=== PATIENT | male | born 1955 | race Caucasian/White ===

== ENCOUNTER 2019-03-21 00:28 | Observation (INO) ==
[2019-03-21] MEDS ORDERED: 0.9 % Sodium Chloride 1,000 ML IVC ONE (00:31)
[2019-03-21] MEDS ORDERED: Isovue-370 500 ML BOTTLE IVP ONE (00:39)
--- NOTE | 2019-03-21 00:40 | Emergency Department Note ---
Disposition Clinical Impression: Vertigo, Near syncope, Aneurysm of infrarenal abdominal aorta Abdominal pain Qualifiers: Abdominal location: generalized Qualified Code(s): R10.84 - Generalized abdominal pain Nausea and vomiting Qualifiers: Vomiting type: unspecified Vomiting Intractability: unspecified Qualified Code(s): R11.2 - Nausea with vomiting, unspecified Diarrhea Qualifiers: Diarrhea type: unspecified type Qualified Code(s): R19.7 - Diarrhea, unspecified Pneumonia Qualifiers: Pneumonia type: due to unspecified organism Laterality: unspecified laterality Lung location: unspecified part of lung Qualified Code(s): J18.9 - Pneumonia, unspecified organism Disposition: Admitted As Inpatient Referrals: NONE,PCP [Primary Care Provider] - Shawn Jenkins DO [Partnered Physician] - [facility] [Outside] Forms: ED Satisfaction Letter, Work/School Release Time of Disposition: 04:36 General Adult HPI - General Chief complaint: ED General Medical Stated complaint: heat exhaustion Time Seen by Provider: 03/21/19 00:29 Source: patient, EMS Mode of arrival: EMS Limitations: no limitations Nursing Notes Reviewed: Yes Vital Signs Reviewed: Yes - History of Present Illness HPI Narrative: Patient is a 63-year-old male with a past medical history including hypertension, coronary artery disease status post CABG, presenting with a chief complaint of lightheadedness and near syncope. The patient worked outside all day long in the heat. He states he only drank some soda pop and flavored water. He states he urinated minimally today and it was dark. He went to bed this evening and around 10:30, he states he woke up. He states when he got out of bed, he felt lightheaded like he was going to pass out. He is ambulating towards the freezer when he fell down. He states he almost passed out. He does not know if he did lose consciousness or not. states he heard him fall and land on the ground. He does not know if he hit his head. He does not have any chest pain or shortness of breath. He does also complain of generalized abdominal pain. He complains of nausea and has had several episodes of nonbilious nonbloody emesis. He states he has had also diarrhea without melena or blood the last 2 days. He feels generally weak since waking up at 10:30. The patient denies any extremity pain, neck pain, back pain. EMS gave him 1 L of IV fluid bolus in route. Pain Scale: 0 - Related Data Home Medications Medication Instructions Recorded Confirmed metFORMIN 03/21/19 03/21/19 Previous Rx's Medication Instructions Recorded Aspirin Enteric Coated [Aspirin EC] 81 mg PO DAILY #30 tablet. 04/17/15 Allergies Allergy/AdvReac Type Severity Reaction Status Date / Time No Known Allergies Allergy Verified 03/21/19 00:31 All systems ED: reviewed and negative except as stated. Review of Systems: As Per HPI Constitutional: Denies: fever, chills ENT ED: Denies: congestion Cardiovascular: Reports: syncope. Denies: chest pain, palpitations Respiratory: Denies: cough, dyspnea Gastrointestinal: Reports: abdominal pain, nausea, vomiting, diarrhea. Denies: hematemesis, melena, hematochezia Musculoskeletal: Denies: back pain, neck pain Neurological: Denies: headache, weakness Past Medical History - Past Medical History Attestation: Yes The following information was validated with the patient. Source: patient Medical history: Reports: arthritis, coronary artery disease, GERD, hyperlipidemia, hypertension, other Surgical history: Reports: appendectomy, coronary bypass (CABG) (3-vessel, 2007), orthopedic, other (Right hip surgery) Psychiatric history: Reports: no psych history - Social History Smoking Status: Former smoker Smokeless Tobacco Status: No Alcohol use: Reports: none Drug use: Reports: none Physical Exam - General Limitations: no limitations General appearance: alert, in no apparent distress - Head Head exam: atraumatic, normocephalic - Eye Eye exam: Present: PERRL, EOMI, other (right lateral subconjunctival hemorrhage). Absent: nystagmus - ENT ENT exam: mucous membranes dry - Neck Neck exam: Present: trachea midline - Chest Chest inspection: Present: normal inspection, symmetric chest wall rise - Respiratory Respiratory exam: Present: normal lung sounds bilaterally. Absent: respiratory distress, wheezes - Cardiovascular Cardiovascular exam: Present: regular rate, normal rhythm - Abdominal Exam Abdominal exam: Present: soft, other (generalized abdominal tenderness without rebound or guarding). Absent: distention - Extremities Exam Extremities exam: Present: normal capillary refill. Absent: pedal edema, calf tenderness - Neurological Exam Neurological exam: Present: alert, oriented X3, CN II-XII intact. Absent: motor sensory deficit - Expanded Neurological Exam Speech: Present: fluid speech Cerebellar function: finger to nose: Normal Motor strength - LUE: 5/5 Motor strength - RUE: 5/5 Motor strength - LLE: 5/5 Motor strength - RLE: 5/5 Upper motor neuron exam: jj neglect: Absent bilaterally, pronator drift: Absent bilaterally Sensory exam upper extremity: light touch: Normal Sensory exam lower extremity: light touch: Normal - Psychiatric Psychiatric exam: Present: normal affect, normal mood - Skin Skin exam: Present: warm, dry. Absent: diaphoresis, pallor Course Vital Signs Temperature 97.5 F L 03/21/19 00:31 Pulse Rate 63 03/21/19 00:31 Respiratory Rate 18 03/21/19 00:31 Blood Pressure 125/79 03/21/19 00:31 O2 Sat by Pulse Oximetry 95 03/21/19 00:31 Temperature 97.5 F L 03/21/19 00:31 Pulse Rate 80 03/21/19 03:24 Respiratory Rate 19 03/21/19 03:24 Blood Pressure 129/77 03/21/19 03:24 O2 Sat by Pulse Oximetry 97 03/21/19 03:24 Oxygen Delivery Oxygen Delivery Room Air Medical Decision Making - MDM Narrative Medical decision making narrative: Patient is presenting with a near syncope versus syncope event. Possible loss of consciousness and may have hit his head. He has been out in the heat and has possible heat exhaustion. He does appear dry. He complains of abdominal pain, nausea and vomiting since 10:30 when he woke up. He denies any chest pain or shortness of breath. He received 1 L of IV fluid bolus by EMS. We will give him a second liter here. Nonfocal neurologic examination with NIHSS 0. We will obtain CT head, cervical spine without contrast as he may have hit his head. We will obtain CT abdomen and pelvis to evaluate his abdominal pain and nausea and vomiting as he had generalized abdominal tenderness to palpation. Check CBC, BMP, hepatic panel, lipase, troponin, CK, EKG, chest x-ray, urinalysis. 02:20 Labs reviewed. CK normal. Do not suspect rhabdomyolysis or significant dehydration. He received 2 L of IV fluids. Troponin less than 0.03. EKG without acute ischemic changes. The patient sat up in bed and then stated that the floor seem to be moving. He had an episode of vomiting. Zofran given. Will try meclizine for vertigo component. CT head and cervical spine were negative. CT abdomen and pelvis is pending. 02:25 CT abdomen and pelvis shows no acute intra-abdominal or intrapelvic abnormality. 4 cm infrarenal abdominal aortic aneurysm that is increased in size compared to 2016. One year follow-up is recommended. We will given vascular surgery follow-up as well. 03:00 Patient is trying to provide urine at this time and still feels dizzy and nauseous every time he stand or sits up. Laying on his right side helps with his symptoms. Will try reglan and benadryl and reassess. 03:45 Urinalysis negative. Patient is resting at this time. Will have him ambulate. 04:00 Patient stood up. States the room is spinning to the left. He was unable to ambulate secondary to the dizziness. He states nausea is improved. Will admit. Scopolamine patch and ativan will be given. Will add on ethanol level and urine drug screen. CXR did show atelectasis versus pneumonia and the patient has been vomiting. Will cover him for aspiration pneumonia with clindamycin plus azithromycin and rocephin. 04:[address] Hitchcock, hospitalist who accepts admission. Maintenance fluids started. - Medical Records Medical records reviewed: Yes I reviewed the patient's medical records. - Lab Data Lab results reviewed: Yes I reviewed the patient's lab results. Result diagrams: 03/21/19 00:46 03/21/19 00:46 Lab Results 03/21/19 03/21/19 03/21/19 Range/Units 00:46 00:46 03:16 WBC 13.9 H (4.3-11.1) K/mcL RBC 4.98 (4.19-5.50) M/mcL Hgb 13.5 (12.9-16.9) g/dL Hct 41.4 (37.5-50.1) % MCV 83.1 (83.0-100.0) fL MCH 27.1 L (28.0-33.3) pg MCHC 32.6 (31.6-35.5) g/dL RDW 14.2 (11.5-14.5) % Plt Count 164 (140-400) K/mcL MPV 10.9 (9.4-12.4) fL Immature Gran % 1.8 (0-4) % Seg Neutrophils % 75.4 % Lymphocytes % 13.6 % Monocytes % 7.4 % Eosinophils % 0.9 % Basophils % 0.9 % Neutrophils # 10.5 H (1.6-8.9) K/mcL Lymphocytes # 1.9 (0.6-4.6) K/mcL Monocytes # 1.0 (0.0-1.3) K/mcL Eosinophils # 0.1 (0.0-0.6) K/mcL Basophils # 0.1 (0.0-0.2) K/mcL Sodium 139 (136-145) mEq/L Potassium 3.8 (3.5-5.1) mEq/L Chloride 111 H (98-107) mEq/L Carbon Dioxide 22 L (23-29) mEq/L BUN 20 (8-23) mg/dL Creatinine 0.89 (0.70-1.30) mg/dL Est GFR ( Amer) > 60 (> 60) Est GFR (Non-Af Amer) > 60 (> 60) BUN/Creatinine Ratio 22 (6-26) Glucose 167 H (70-105) mg/dL Calculated Osmolality 294 (280-300) Calcium 7.4 L (8.6-10.3) mg/dL Phosphorus 2.5 L (2.7-4.5) mg/dL Magnesium 1.5 L (1.6-2.6) mg/dL Total Bilirubin 0.4 (0.3-1.0) mg/dL Direct Bilirubin 0.1 (0.0-0.2) mg/dL Indirect Bilirubin 0.3 (0.0-1.2) mg/dL AST 17 (13-39) Units/L ALT 23 (7-52) Units/L Alkaline Phosphatase 74 (34-104) Units/L Creatine Kinase 72 (30-223) Units/L Troponin I < 0.03 (< 0.04) ng/mL Serum Total Protein 5.0 L (6.4-8.9) g/dL Albumin 3.3 L (3.5-5.7) g/dL Globulin 1.7 L (2.4-3.5) g/dL Albumin/Globulin Ratio 1.9 (1.1-2.2) Lipase 18 (11-82) Units/L Urine Color Yellow (Yellow) Urine Clarity Clear (Clear) Urine pH 5.5 (5.0-8.0) pH Units Ur Specific [place] > 1.030 H (1.010-1.025) Urine Protein Trace (Neg-Trace) mg/dL Urine Glucose (UA) Normal (Normal) mg/dL Urine Ketones Negative (Negative) mg/dL Urine Blood Negative (Negative) Urine Nitrite Negative (Negative) Urine Bilirubin Negative (Negative) Urine Urobilinogen Normal (Normal) mg/dL Ur Leukocyte Esterase Negative (Negative) Ur Culture Indicated? NO (NO) Ur Drug Screen Interp Ethyl Alcohol < 10 (Less than 10) mg/dL 03/21/19 Range/Units 03:16 WBC (4.3-11.1) K/mcL RBC (4.19-5.50) M/mcL Hgb (12.9-16.9) g/dL Hct (37.5-50.1) % MCV (83.0-100.0) fL MCH (28.0-33.3) pg MCHC (31.6-35.5) g/dL RDW (11.5-14.5) % Plt Count (140-400) K/mcL MPV (9.4-12.4) fL Immature Gran % (0-4) % Seg Neutrophils % % Lymphocytes % % Monocytes % % Eosinophils % % Basophils % % Neutrophils # (1.6-8.9) K/mcL Lymphocytes # (0.6-4.6) K/mcL Monocytes # (0.0-1.3) K/mcL Eosinophils # (0.0-0.6) K/mcL Basophils # (0.0-0.2) K/mcL Sodium (136-145) mEq/L Potassium (3.5-5.1) mEq/L Chloride (98-107) mEq/L Carbon Dioxide (23-29) mEq/L BUN (8-23) mg/dL Creatinine (0.70-1.30) mg/dL Est GFR ( Amer) (> 60) Est GFR (Non-Af Amer) (> 60) BUN/Creatinine Ratio (6-26) Glucose (70-105) mg/dL Calculated Osmolality (280-300) Calcium (8.6-10.3) mg/dL Phosphorus (2.7-4.5) mg/dL Magnesium (1.6-2.6) mg/dL Total Bilirubin (0.3-1.0) mg/dL Direct Bilirubin (0.0-0.2) mg/dL Indirect Bilirubin (0.0-1.2) mg/dL AST (13-39) Units/L ALT (7-52) Units/L Alkaline Phosphatase (34-104) Units/L Creatine Kinase (30-223) Units/L Troponin I (< 0.04) ng/mL Serum Total Protein (6.4-8.9) g/dL Albumin (3.5-5.7) g/dL Globulin (2.4-3.5) g/dL Albumin/Globulin Ratio (1.1-2.2) Lipase (11-82) Units/L Urine Color (Yellow) Urine Clarity (Clear) Urine pH (5.0-8.0) pH Units Ur Specific [place] (1.010-1.025) Urine Protein (Neg-Trace) mg/dL Urine Glucose (UA) (Normal) mg/dL Urine Ketones (Negative) mg/dL Urine Blood (Negative) Urine Nitrite (Negative) Urine Bilirubin (Negative) Urine Urobilinogen (Normal) mg/dL Ur Leukocyte Esterase (Negative) Ur Culture Indicated? (NO) Ur Drug Screen Interp See Below Ethyl Alcohol (Less than 10) mg/dL - Radiology Data Radiology results reviewed: Yes I reviewed the patient's radiology results. Chest X-Ray 03/21/19 00:31 IMPRESSION: Minimal left basilar airspace disease, atelectasis versus pneumonia. D/ / Lucinda Mendoza MD / Lucinda Mendoza MD Interpreting Provider: Lucinda Mendoza MD Abdomen/Pelvis CT 03/21/19 00:39 IMPRESSION: No acute intraabdominal or intrapelvic abnormality. 4 cm infrarenal abdominal aortic aneurysm, increased in size compared to prior study from 2016. 1 year follow-up recommended. For management of fusiform AAA: 2.6-2.9 cm aorta, recommend follow-up every 5 years or aortas meeting the criteria for AAA (>1.5 x proximal normal segment; no f/u if < 1.5 x proximal normal segment; no f/u for aortas < 2.6 cm). 3.0-3.4 cm AAA, recommend follow-up every 3 years. 3.5-3.9 cm AAA, recommend follow-up every 2 years. 4.0-4.4 cm AAA, recommend follow-up every 12 months and recommend vascular consultation. 4.5-5.4 cm AAA, recommend follow-up every 6 months and recommend vascular consultation. >5.5 cm AAA, recommend referral to vascular specialist. * For management of saccular abdominal aortic aneurysms of any size, recommend vascular consultation. Note: For AAA enlargement of >0.5 cm in 6 months or >1 cm in 1 year, recommend vascular consultation. References: J Am Abram Radiol 2013; 10(10):789-794; J Vasc Surg. 2018; 67:2-77 D/ / Lucinda Mendoza MD / Lucinda Mendoza MD Interpreting Provider: Lucinda Mendoza MD Cervical Spine CT 03/21/19 00:44 IMPRESSION: No acute abnormality of the cervical spine. Partial opacification of mastoid air cells. Clinical correlation for mastoiditis recommended. D/ / Lucinda Mendoza MD / Lucinda Mendoza MD Interpreting Provider: Lucinda Mendoza MD Head CT 03/21/19 00:44 IMPRESSION: No acute intracranial abnormality. D/ / Lucinda Mendoza MD / Lucinda Mendoza MD Interpreting Provider: Lucinda Mendoza MD - EKG Data EKG #1 EKG attestation: Yes I reviewed and interpreted this EKG. EKG results narrative: EKG obtained at 00 34 shows sinus rhythm with heart rate 72, NJ interval 180, QRS duration 98, QTC 457, no ST elevation or depression, T-wave inversion in aVL and lead 1, compared to old EKG on 09/26/2015 which shows no new changes NIH Stroke Scale - Level of Consciousness LOC: Alert - LOC Questions LOC Questions: Answers both correctly - LOC Commands LOC Commands: Performs both correctly - Best Gaze Best Gaze: Normal - Visual Visual: No visual loss - Facial Palsy Facial Palsy: Normal - Motor Arms Motor Arm-Left: No drift for 10 seconds Motor Arm-Right: No drift for 10 seconds - Motor Legs Motor Leg-Left: No drift for 5 seconds Motor Leg-Right: No drift for 5 seconds - Limb Ataxia Limb Ataxia: Normal, No Ataxia - Sensory Sensory: Normal - Best Language Best Language: No aphasia - Dysarthria Dysarthria: Normal - Extinction and Inattention Extinction and Inattention: Normal - NIHSS Total Score NIHSS Total Score: 0
[2019-03-21 01:02] LABS: Basophils # 0.1 K/mcL (0.0-0.2); Basophils % 0.9 %; Eosinophils # 0.1 K/mcL (0.0-0.6); Eosinophils % 0.9 %; Hematocrit 41.4 % (37.5-50.1); Hemoglobin 13.5 g/dL (12.9-16.9); Immature Granulocytes % 1.8 % (0-4); Lymphocytes # 1.9 K/mcL (0.6-4.6); Lymphocytes % 13.6 %; Mean Corpuscular HGB Conc 32.6 g/dL (31.6-35.5); Mean Corpuscular Hemoglobin 27.1 pg (28.0-33.3); Mean Corpuscular Volume 83.1 fL (83.0-100.0); Mean Platelet Volume 10.9 fL (9.4-12.4); Monocytes % 7.4 %; Neutrophils # 10.5 K/mcL (1.6-8.9); Platelet Count 164 K/mcL (140-400); Red Blood Count 4.98 M/mcL (4.19-5.50); Red Cell Distribution Width 14.2 % (11.5-14.5); Segmented Neutrophils % 75.4 %; White Blood Count 13.9 K/mcL (4.3-11.1)
[2019-03-21 01:17] LABS: Alanine Aminotransferase 23 Units/L (7-52); Albumin 3.3 g/dL (3.5-5.7); Albumin/Globulin Ratio 1.9 (1.1-2.2); Alkaline Phosphatase 74 Units/L (34-104); Aspartate Amino Transferase 17 Units/L (13-39); BUN/Creatinine Ratio 22 (6-26); Bilirubin,Direct 0.1 mg/dL (0.0-0.2); Bilirubin,Indirect 0.3 mg/dL (0.0-1.2); Bilirubin,Total 0.4 mg/dL (0.3-1.0); Blood Urea Nitrogen 20 mg/dL (8-23); Calcium 7.4 mg/dL (8.6-10.3); Carbon Dioxide 22 mEq/L (23-29); Chloride 111 mEq/L (98-107); Creatine Kinase 72 Units/L (30-223); Globulin 1.7 g/dL (2.4-3.5); Glucose 167 mg/dL (70-105); Lipase 18 Units/L (11-82); Magnesium 1.5 mg/dL (1.6-2.6); Osmolality,Calculated 294 (280-300); Phosphorous 2.5 mg/dL (2.7-4.5); Potassium 3.8 mEq/L (3.5-5.1); Sodium 139 mEq/L (136-145); eGFR For African Americans > 60 (> 60); eGFR For Non-African Americans > 60 (> 60)
[2019-03-21] MEDS ORDERED: Ondansetron 4 MG/2 ML VIAL IVP ONE (01:18)
[2019-03-21 01:27] LABS: Troponin I < 0.03 ng/mL (< 0.04)
[2019-03-21] MEDS ORDERED: Metoclopramide 10 MG/2 ML VIAL IVP ONE (03:00)
[2019-03-21 03:24] LABS: Bilirubin,Urine Negative (Negative); Blood,Urine Negative (Negative); Clarity,Urine Clear (Clear); Color,Urine Yellow (Yellow); Glucose,Urine (UA) Normal (Normal); Ketones,Urine Negative (Negative); Leukocyte Esterase,Urine Negative (Negative); Nitrite,Urine Negative (Negative); PH,Urine 5.5 pH Units (5.0-8.0); Protein,Urine Trace mg/dL (Neg-Trace); Specific Gravity,Urine > 1.030 (1.010-1.025); Urobilinogen,Urine Normal (Normal)
[2019-03-21] MEDS ORDERED: *HR* LORazepam 2 MG/ML VIAL IVP ONE (04:03)
[2019-03-21] MEDS ORDERED: Scopolamine Patch 1.5 MG PATCH.TD72 TD ONE (04:03)
[2019-03-21] MEDS ORDERED: Clindamycin 600 MG/50 ML 600 MG/50 ML IV.SOLN IVPB ONE (04:23)
[2019-03-21] MEDS ORDERED: Azithromycin 500 MG in 0.9 % Sodium Chloride 250 ML IVPB ONE (04:24)
[2019-03-21] MEDS ORDERED: cefTRIAXone 1,000 MG in Water for inj. (sterile) 10 ML IVP ONE (04:24)
[2019-03-21 04:33] LABS: Ethanol < 10 mg/dL (Less than 10)
[2019-03-21 04:36] LABS: Amphetamine Screen,Urine Negative ng/mL (Cutoff=1000); Barbiturate Screen,Urine Negative ng/mL (Cutoff=200); Benzodiazepines Screen,Urine Negative ng/mL (Cutoff=200); Cannabinoid Screen,Urine Negative ng/mL (Cutoff = 50); Cocaine Screen,Urine Negative ng/mL (Cutoff= 300); Opiate Screen,Urine Negative ng/mL (Cutoff=300); Phencyclidine Screen,Urine Negative ng/mL (Cutoff=25)
[2019-03-21] MEDS ORDERED: 0.9 % Sodium Chloride 1,000 ML IVC SCH (04:45)
--- NOTE | 2019-03-21 05:36 | Emergency Department Note ---
Disposition Clinical Impression: Vertigo, Near syncope, Aneurysm of infrarenal abdominal aorta Abdominal pain Qualifiers: Abdominal location: generalized Qualified Code(s): R10.84 - Generalized abdominal pain Nausea and vomiting Qualifiers: Vomiting type: unspecified Vomiting Intractability: unspecified Qualified Code(s): R11.2 - Nausea with vomiting, unspecified Diarrhea Qualifiers: Diarrhea type: unspecified type Qualified Code(s): R19.7 - Diarrhea, unspecified Pneumonia Qualifiers: Pneumonia type: due to unspecified organism Laterality: unspecified laterality Lung location: unspecified part of lung Qualified Code(s): J18.9 - Pneumonia, unspecified organism Disposition: Admitted As Inpatient Time of Disposition: 05:36 General Adult HPI - General Chief complaint: ED General Medical Stated complaint: heat exhaustion Time Seen by Provider: 03/21/19 00:29 Source: patient, EMS Mode of arrival: EMS Limitations: no limitations - History of Present Illness Pain Scale: 0 - Related Data Home Medications Medication Instructions Recorded Confirmed metFORMIN 03/21/19 03/21/19 Previous Rx's Medication Instructions Recorded Aspirin Enteric Coated [Aspirin EC] 81 mg PO DAILY #30 tablet. 04/17/15 Allergies Allergy/AdvReac Type Severity Reaction Status Date / Time No Known Allergies Allergy Verified 03/21/19 00:31 Constitutional: Denies: fever, chills ENT ED: Denies: congestion Cardiovascular: Reports: syncope. Denies: chest pain, palpitations Respiratory: Denies: cough, dyspnea Gastrointestinal: Reports: abdominal pain, nausea, vomiting, diarrhea. Denies: hematemesis, melena, hematochezia Musculoskeletal: Denies: back pain, neck pain Neurological: Denies: headache, weakness Past Medical History - Past Medical History Medical history: Reports: arthritis, coronary artery disease, diabetes, GERD, hyperlipidemia, hypertension, other Surgical history: Reports: appendectomy, coronary bypass (CABG) (3-vessel, 2007), orthopedic, other (Right hip surgery) Psychiatric history: Reports: no psych history - Social History Smoking Status: Former smoker Smokeless Tobacco Status: No Alcohol use: Reports: none Drug use: Reports: none Physical Exam - General Limitations: no limitations General appearance: alert, in no apparent distress Course Vital Signs Temperature 97.5 F L 03/21/19 00:31 Pulse Rate 63 03/21/19 00:31 Respiratory Rate 18 03/21/19 00:31 Blood Pressure 125/79 03/21/19 00:31 O2 Sat by Pulse Oximetry 95 03/21/19 00:31 Temperature 97.5 F L 03/21/19 00:31 Pulse Rate 87 03/21/19 04:52 Respiratory Rate 18 03/21/19 04:52 Blood Pressure 112/80 03/21/19 04:52 O2 Sat by Pulse Oximetry 94 03/21/19 04:52 Oxygen Delivery Oxygen Delivery Room Air Medical Decision Making - Lab Data Result diagrams: 03/21/19 00:46 03/21/19 00:46 Lab Results 03/21/19 03/21/19 03/21/19 Range/Units 00:46 00:46 03:16 WBC 13.9 H (4.3-11.1) K/mcL RBC 4.98 (4.19-5.50) M/mcL Hgb 13.5 (12.9-16.9) g/dL Hct 41.4 (37.5-50.1) % MCV 83.1 (83.0-100.0) fL MCH 27.1 L (28.0-33.3) pg MCHC 32.6 (31.6-35.5) g/dL RDW 14.2 (11.5-14.5) % Plt Count 164 (140-400) K/mcL MPV 10.9 (9.4-12.4) fL Immature Gran % 1.8 (0-4) % Seg Neutrophils % 75.4 % Lymphocytes % 13.6 % Monocytes % 7.4 % Eosinophils % 0.9 % Basophils % 0.9 % Neutrophils # 10.5 H (1.6-8.9) K/mcL Lymphocytes # 1.9 (0.6-4.6) K/mcL Monocytes # 1.0 (0.0-1.3) K/mcL Eosinophils # 0.1 (0.0-0.6) K/mcL Basophils # 0.1 (0.0-0.2) K/mcL Sodium 139 (136-145) mEq/L Potassium 3.8 (3.5-5.1) mEq/L Chloride 111 H (98-107) mEq/L Carbon Dioxide 22 L (23-29) mEq/L BUN 20 (8-23) mg/dL Creatinine 0.89 (0.70-1.30) mg/dL Est GFR ( Amer) > 60 (> 60) Est GFR (Non-Af Amer) > 60 (> 60) BUN/Creatinine Ratio 22 (6-26) Glucose 167 H (70-105) mg/dL Calculated Osmolality 294 (280-300) Calcium 7.4 L (8.6-10.3) mg/dL Phosphorus 2.5 L (2.7-4.5) mg/dL Magnesium 1.5 L (1.6-2.6) mg/dL Total Bilirubin 0.4 (0.3-1.0) mg/dL Direct Bilirubin 0.1 (0.0-0.2) mg/dL Indirect Bilirubin 0.3 (0.0-1.2) mg/dL AST 17 (13-39) Units/L ALT 23 (7-52) Units/L Alkaline Phosphatase 74 (34-104) Units/L Creatine Kinase 72 (30-223) Units/L Troponin I < 0.03 (< 0.04) ng/mL Serum Total Protein 5.0 L (6.4-8.9) g/dL Albumin 3.3 L (3.5-5.7) g/dL Globulin 1.7 L (2.4-3.5) g/dL Albumin/Globulin Ratio 1.9 (1.1-2.2) Lipase 18 (11-82) Units/L Urine Color Yellow (Yellow) Urine Clarity Clear (Clear) Urine pH 5.5 (5.0-8.0) pH Units Ur Specific [place] > 1.030 H (1.010-1.025) Urine Protein Trace (Neg-Trace) mg/dL Urine Glucose (UA) Normal (Normal) mg/dL Urine Ketones Negative (Negative) mg/dL Urine Blood Negative (Negative) Urine Nitrite Negative (Negative) Urine Bilirubin Negative (Negative) Urine Urobilinogen Normal (Normal) mg/dL Ur Leukocyte Esterase Negative (Negative) Ur Culture Indicated? NO (NO) Urine Opiates Screen (Aspchr=132) ng/mL Ur Buprenorphine Scrn (Cutoff=5) ng/mL Ur Barbiturates Screen (Swpbvj=441) ng/mL Ur Phencyclidine Scrn (Cutoff=25) ng/mL Ur Amphetamines Screen (Cbwgyq=0582) ng/mL U Benzodiazepines Scrn (Fvbhro=445) ng/mL Urine Cocaine Screen (Cutoff= 300) ng/mL U Marijuana (THC) Screen (Cutoff = 50) ng/mL Ur Drug Screen Interp Ethyl Alcohol < 10 (Less than 10) mg/dL 03/21/19 Range/Units 03:16 WBC (4.3-11.1) K/mcL RBC (4.19-5.50) M/mcL Hgb (12.9-16.9) g/dL Hct (37.5-50.1) % MCV (83.0-100.0) fL MCH (28.0-33.3) pg MCHC (31.6-35.5) g/dL RDW (11.5-14.5) % Plt Count (140-400) K/mcL MPV (9.4-12.4) fL Immature Gran % (0-4) % Seg Neutrophils % % Lymphocytes % % Monocytes % % Eosinophils % % Basophils % % Neutrophils # (1.6-8.9) K/mcL Lymphocytes # (0.6-4.6) K/mcL Monocytes # (0.0-1.3) K/mcL Eosinophils # (0.0-0.6) K/mcL Basophils # (0.0-0.2) K/mcL Sodium (136-145) mEq/L Potassium (3.5-5.1) mEq/L Chloride (98-107) mEq/L Carbon Dioxide (23-29) mEq/L BUN (8-23) mg/dL Creatinine (0.70-1.30) mg/dL Est GFR ( Amer) (> 60) Est GFR (Non-Af Amer) (> 60) BUN/Creatinine Ratio (6-26) Glucose (70-105) mg/dL Calculated Osmolality (280-300) Calcium (8.6-10.3) mg/dL Phosphorus (2.7-4.5) mg/dL Magnesium (1.6-2.6) mg/dL Total Bilirubin (0.3-1.0) mg/dL Direct Bilirubin (0.0-0.2) mg/dL Indirect Bilirubin (0.0-1.2) mg/dL AST (13-39) Units/L ALT (7-52) Units/L Alkaline Phosphatase (34-104) Units/L Creatine Kinase (30-223) Units/L Troponin I (< 0.04) ng/mL Serum Total Protein (6.4-8.9) g/dL Albumin (3.5-5.7) g/dL Globulin (2.4-3.5) g/dL Albumin/Globulin Ratio (1.1-2.2) Lipase (11-82) Units/L Urine Color (Yellow) Urine Clarity (Clear) Urine pH (5.0-8.0) pH Units Ur Specific [place] (1.010-1.025) Urine Protein (Neg-Trace) mg/dL Urine Glucose (UA) (Normal) mg/dL Urine Ketones (Negative) mg/dL Urine Blood (Negative) Urine Nitrite (Negative) Urine Bilirubin (Negative) Urine Urobilinogen (Normal) mg/dL Ur Leukocyte Esterase (Negative) Ur Culture Indicated? (NO) Urine Opiates Screen Negative (Unorui=455) ng/mL Ur Buprenorphine Scrn Negative (Cutoff=5) ng/mL Ur Barbiturates Screen Negative (Gzllhj=852) ng/mL Ur Phencyclidine Scrn Negative (Cutoff=25) ng/mL Ur Amphetamines Screen Negative (Esumyy=3086) ng/mL U Benzodiazepines Scrn Negative (Psherm=382) ng/mL Urine Cocaine Screen Negative (Cutoff= 300) ng/mL U Marijuana (THC) Screen Negative (Cutoff = 50) ng/mL Ur Drug Screen Interp See Below Ethyl Alcohol (Less than 10) mg/dL Attestation Statement - Attestation Attestation: I reviewed the residents documentation and agree with the residents assessment and plan of care. I have personally had face to face time with the patient. (Brief History, Brief Exam, and MDM) I personally supervised and was present for the reid/critical portions of the following procedures completed by the resident: EKG 63 year old male presents to the ED with complaints of weakness and possible heat exhaustion and syncope. During his visit he became vertiginous and has some mild electrolyte abnormalities and after mutliple therpies for veritgo it did not improve. CArdio workup is otherwie negtativ and CXR shows possible pnueonina. Because his symptoms have not improved and appers to be intractable we will admit ot medicine for syncope, vertigo, pnuemonia.
[2019-03-21] MEDS ORDERED: Acetaminophen 325 MG TABLET PO PRN (07:26)
[2019-03-21] MEDS ORDERED: Ondansetron 4 MG/2 ML VIAL IVP PRN (07:26)
[2019-03-21] MEDS ORDERED: Mag Hydrox/Al Hydrox/Simeth 30 ML UDC PO PRN (07:26)
[2019-03-21] MEDS ORDERED: Naloxone 0.4 MG/ML INJ IVP PRN (07:26)
[2019-03-21] MEDS ORDERED: MOM Conc 10 ML UD.LIQ PO PRN (07:26)
[2019-03-21] MEDS ORDERED: D5% in Water 1,000 ML IVC PRN (07:27)
[2019-03-21] MEDS ORDERED: *HR* Dextrose 50 % in Water (Syg) 50 ML SYRINGE IVP PRN (07:27)
[2019-03-21] MEDS ORDERED: Dextrose Gel 15 GM/37.5 ML TUBE PO PRN ×2 (07:27)
--- NOTE | 2019-03-21 08:09 | Internal Med History&Physical ---
Date of Encounter: 03/21/19 Time of Encounter: 07:50 Internal Medicine - H&P: HPI Chief complaint: dizziness Admitted From: Emergency Dept Plans for Post Hospital Care: Home History of present illness: Mr. Corona is a 63 year old male with hx of HTN and CAD presented to ED with concerns of heat exhaustion. He was evaluated and was to be discharged but remained persistently dizzy when standing so was admitted. Mr Corona stated that he was out in the heat working yesterday. He didn't drink much and didn't urinate much. He had no issues and went to bed without event. He awoke about 1030PM and got up. At that time he felt lightheaded. He went to the kitchen and fell. He is unsure if he completely lost consciousness. Denies CP or SOB. No weakness or parasthesias. He has had some nausea, vomiting and diarrhea over last 2 days prior to admission. No pain. In ED he received fluids. Work up included CT of abd as well as CT of head and neck (not CTA). WBC elevated 13.9. Mag low. Renal function normal. Scopolamine patch placed but has not helped much. Feels worse with standing. In ED was worse with turning head. At this time he is somnolent. He is able to respond to me but falls back asl eep. Past Med Surg Social Fam HX - Past Medical History Source: patient Medical history: arthritis, coronary artery disease, diabetes, GERD, hyperlipidemia, hypertension, other Psychiatric history: no psych history - Past Surgical History Surgical History: appendectomy, coronary bypass (CABG), orthopedic, other - Social History Smoking Status: Former smoker Smokeless Tobacco Status: No Alcohol use: none Drug use: none - Family History Mother Living Status: Hx Family Cardiac Disorders: Yes (Heart problem) Father Living Status: Brother Living Status: Still Living Hx Family Cardiac Disorders: Yes Hx Family Endocrine Disorder: Yes Sister Hx Family Cardiac Disorders: Yes Hx Family Endocrine Disorder: Yes Internal Medicine - H&P: Meds Aspirin Enteric Coated [Aspirin EC] 81 mg PO DAILY #30 tablet. 04/17/15 [Rx] metFORMIN 03/21/19 [History] Allergy/AdvReac Type Severity Reaction Status Date / Time No Known Allergies Allergy Verified 03/21/19 00:31 All Systems PM: A 10-system review of systems was performed and is negative for pertinent findings except as documented above in the HPI. - Constitutional Constitutional: fatigue, no fever(s) - EENT Eyes: no change in vision, no diplopia, no loss of vision Ears: no decreased hearing Nose, mouth and throat: dry mouth, no mouth pain, no sinus pain - Cardiovascular Cardiovascular ROS IM: lightheadedness, no chest pain, no diaphoresis, no dyspnea, no dyspnea on exertion, no palpitations, no paroxysmal nocturnal dyspnea - Respiratory Respiratory: no cough, no dyspnea, no dyspnea on exertion, no wheezing, no chest congestion - Gastrointestinal Gastrointestinal: abdominal pain, diarrhea, nausea, vomiting - Genitourinary Genitourinary ROS male: no difficulty urinating, no urinary frequency - Musculoskeletal Musculoskeletal ROS IM: no arthralgias, no myalgias, no numbness - Integumentary Integumentary IM: no rash - Neurological Neurological ROS: dizziness, vertigo, no confusion, no memory loss, no paresthesias - Endocrine Endocrine IM: no excessive sweating - Hematologic/Lymphatic Hematologic/Lymphatic: no easy bleeding - Allergic/Immunologic Allergic/Immunologic: no throat swelling - Constitutional Vitals: Temp Pulse Resp BP Pulse Ox 97.8 F 82 16 118/73 92 03/21/19 06:40 03/21/19 06:40 03/21/19 06:40 03/21/19 06:40 03/21/19 06:40 General appearance: Present: A&O X 3 (Somnolent but arouses to answer questions.) Exam: See below - Head Head exam: Present: atraumatic, normocephalic - Eye Eye exam: Present: conjunctival injection, EOMI. Absent: nystagmus Additional comments: Pupils small bilaterally - ENT ENT exam: Present: mucous membranes dry - Neck Neck exam general surgery: Present: normal inspection, supple. Absent: nuchal rigidity - Respiratory Respiratory exam: Present: CTAB. Absent: rales, rhonchi, wheezes - Cardiovascular Cardiovascular exam: Present: RRR. Absent: tachycardia - GI/Abdominal GI/Abdominal exam: Present: soft, no peritoneal signs. Absent: mass, tenderness - Extremities Exam Extremities exam: Present: warm. Absent: pedal edema, tenderness - Neurological Exam Neurological exam: Present: alert, oriented X3 Additional comments: Remains dizzy with movement. Neg rapid movements. Neg heel to merino. - Skin Skin exam: Present: dry, warm. Absent: rash Internal Med - H&P Results - Labs CBC & Chem 7: 03/21/19 00:46 03/21/19 00:46 Labs: Short CBC 03/21/19 Range/Units 00:46 WBC 13.9 H (4.3-11.1) K/mcL Hgb 13.5 (12.9-16.9) g/dL Hct 41.4 (37.5-50.1) % Plt Count 164 (140-400) K/mcL Neutrophils # 10.5 H (1.6-8.9) K/mcL BMP 03/21/19 00:46 Sodium 139 Potassium 3.8 Chloride 111 H Carbon Dioxide 22 L BUN 20 Creatinine 0.89 Glucose 167 H Calcium 7.4 L Cardiac Enzymes 03/21/19 Range/Units 00:46 Troponin I < 0.03 (< 0.04) ng/mL Liver Function 03/21/19 Range/Units 00:46 Total Bilirubin 0.4 (0.3-1.0) mg/dL Direct Bilirubin 0.1 (0.0-0.2) mg/dL AST 17 (13-39) Units/L ALT 23 (7-52) Units/L Alkaline Phosphatase 74 (34-104) Units/L Albumin 3.3 L (3.5-5.7) g/dL Urine 03/21/19 Range/Units 03:16 Urine Color Yellow (Yellow) Urine Clarity Clear (Clear) Urine pH 5.5 (5.0-8.0) pH Units Ur Specific [place] > 1.030 H (1.010-1.025) Urine Protein Trace (Neg-Trace) mg/dL Urine Glucose (UA) Normal (Normal) mg/dL - Impressions ITS Impressions Chest X-Ray 03/21/19 00:31 IMPRESSION: Minimal left basilar airspace disease, atelectasis versus pneumonia. D/ / Lucinda Mendoza MD / Lucinda Mendoza MD Interpreting Provider: Lucinda Mendoza MD Abdomen/Pelvis CT 03/21/19 00:39 IMPRESSION: No acute intraabdominal or intrapelvic abnormality. 4 cm infrarenal abdominal aortic aneurysm, increased in size compared to prior study from 2016. 1 year follow-up recommended. For management of fusiform AAA: 2.6-2.9 cm aorta, recommend follow-up every 5 years or aortas meeting the criteria for AAA (>1.5 x proximal normal segment; no f/u if < 1.5 x proximal normal segment; no f/u for aortas < 2.6 cm). 3.0-3.4 cm AAA, recommend follow-up every 3 years. 3.5-3.9 cm AAA, recommend follow-up every 2 years. 4.0-4.4 cm AAA, recommend follow-up every 12 months and recommend vascular consultation. 4.5-5.4 cm AAA, recommend follow-up every 6 months and recommend vascular consultation. >5.5 cm AAA, recommend referral to vascular specialist. * For management of saccular abdominal aortic aneurysms of any size, recommend vascular consultation. Note: For AAA enlargement of >0.5 cm in 6 months or >1 cm in 1 year, recommend vascular consultation. References: J Am Abram Radiol 2013; 10(10):789-794; J Vasc Surg. 2018; 67:2-77 D/ / Lucinda Mendoza MD / Lucinda Mendoza MD Interpreting Provider: Lucinda Mendoza MD Cervical Spine CT 03/21/19 00:44 IMPRESSION: No acute abnormality of the cervical spine. Partial opacification of mastoid air cells. Clinical correlation for mastoiditis recommended. D/ / Lucinda Mendoza MD / Lucinda Mendoza MD Interpreting Provider: Lucinda Mendoza MD Head CT 03/21/19 00:44 IMPRESSION: No acute intracranial abnormality. D/ / Lucinda Mendoza MD / Lucinda Mendoza MD Interpreting Provider: Lucinda Mendoza MD - Assessment and Plan (1) Vertigo Current Visit: Yes Status: Acute Assessment and plan: Pt presented to ED with complaints of lightheadedness and near syncope. Evaluation was negative except for slight increase in WBC with no identifiable i nfection. Treated with fluids and scopolamine - symptoms persist. CT done in ED (not CTA) This is most likely orthostasis or positional vertigo but has not really improved with treatment. Concerned for posterior circulation CVA. Will ask for neuro opinion. (2) Gastroenteritis Current Visit: Yes Status: Acute Assessment and plan: Pt with recent N/V/D. CT of abdomen negative. Continue IV fluids. (3) Non-insulin dependent type 2 diabetes mellitus Current Visit: No Status: Chronic Assessment and plan: Pt takes metformin at home. Will order accuchecks and coverage. (4) HTN (hypertension) Current Visit: No Status: Chronic Assessment and plan: Monitoring. Qualifiers: Hypertension type: essential hypertension Qualified Code(s): I10 - Essential (primary) hypertension - Time Spent With Patient Total time spent is greater than 50% in coordination of care (as documented) at patient's floor/unit and/or counseling patient:
[2019-03-21] MEDS: Insulin LISPRO 300 UNITS/3 ML VIAL SQ SCH ×2 (09:15→18:19)
[2019-03-21] MEDS: Aspirin Enteric Coated 81 MG Tablet PO SCH (09:24)
[2019-03-21] MEDS: Ringers Solution, Lactated 1,000 ML IVC SCH ×2 (09:24→22:55)
--- NOTE | 2019-03-21 12:01 | Neurology - Consult Note ---
Date of Encounter: 03/21/19 Time of Encounter: 11:59 Assessment and Plan (1) Vertigo Current Visit: Yes Status: Acute This patient who has a history of multiple medical conditions admitted with lightheadedness dizziness likely related to dehydration and heat exhaustion Remain symptomatic with the vertiginous symptoms predominantly seems to be peripheral in origin CT of his head is been negative but considering all I would recommend getting an MRI of the brain without contrast Patient would also benefit from fluid replacement as he is getting at the same time should be on fall precautions considering significant vertiginous symptoms has been experiencing Start him on a baby aspirin and continue on it as well (2) Near syncope Current Visit: Yes Status: Acute History of Present Illness HPI: Mr. Corona is a 63 year old male with past medical history of HTN and CAD admitted with lightheadedness and dizziness and concern off heat exhaustion . According to the patient he was out in the heat working yesterday. He didn't drink much and didn't urinate much. He had no issues and went to bed without event. He awoke about 1030PM and got up. At that time he felt lightheaded. He went to the kitchen and fell. He is unsure if he completely lost consciousness. Denies CP or SOB. No weakness or parasthesias. He has had some nausea, vomiting and diarrhea over last 2 days prior to admission. . In ED he received fluids. Work up included CT of abd as well as CT of head and neck (not CTA). WBC elevated 13.9. Mag low. Renal function normal. Scopolamine patch placed but has not helped much. Feels worse with standing. In ED was worse with turning head. Patient remain dizzy and lightheaded especially when he is moving his head [id number] or up-and-down He denies any focal motor weakness or any double vision Past Med Surg Social Fam HX - Past Medical History Medical history: arthritis, coronary artery disease, diabetes, GERD, hyperlipidemia, hypertension, other Psychiatric history: no psych history - Past Surgical History Surgical History: appendectomy, coronary bypass (CABG), orthopedic, other - Social History Smoking Status: Former smoker Smokeless Tobacco Status: No Alcohol use: none Drug use: none - Family History Mother Living Status: Hx Family Cardiac Disorders: Yes (Heart problem) Father Living Status: Brother Living Status: Still Living Hx Family Cardiac Disorders: Yes Hx Family Endocrine Disorder: Yes Sister Hx Family Cardiac Disorders: Yes Hx Family Endocrine Disorder: Yes Medications and Allergies Aspirin Enteric Coated [Aspirin EC] 81 mg PO DAILY #30 tablet. 04/17/15 [Rx] metFORMIN 03/21/19 [History] Allergy/AdvReac Type Severity Reaction Status Date / Time No Known Allergies Allergy Verified 03/21/19 00:31 All Systems: The remainder of the systems were reviewed and are negative Physical Examination - Vital Signs Vital Signs: Initial Vital Signs Temp Pulse Resp BP Pulse Ox 97.5 F L 63 18 125/79 95 03/21/19 00:31 03/21/19 00:31 03/21/19 00:31 03/21/19 00:31 03/21/19 00:31 - Exam Exam: GENERAL: Comfortable in no acute distress HEENT: Normal LUNGS: CTA HEART: RRR, S1 S2 Audible, no murmur EXTREMITIES: No Pedal edema. DETAILED NEUROLOGICAL EXAMINATION: MENTAL STATUS: Oriented to person, place, date and situation. Memory: knows the President, Aware of recent events Recent Memory Intact, Attention span is normal Cranial Nerve Examination: CN - II: Visual Acuity, Field of Vision Normal, Fundus examination: No disk edema, Pupils- size shape reaction to light and accommodation: All normal. CN III, IV, : External ocular movements were intact, Pupils were reactive, Nodrooping of the eyelids CN V: Sensation over the face to light touch and pinprick all normal. Corneal reflexes not tested, jaw jerk normal. CN VII: No facial asymmetry, no flattening of nasolabial folds, no difficulty in closing the eyes, no loss of forehead wrinkles, no difficulty in eye-closure, frowning raising eyebrows. CNVIII: No significant hearing loss CN IX, X: Uvula centralized not deviated, Gag reflex: Not tested CN X1: Sternocleidomastoid, trapezius, normal or evidence of any weakness. CN X11: No Dysarthria, no wasting or fibrilation f tongue muscles, no deviation, tongue muscle strength normal. Motor examination: No hypertrophy, tone was normal, power grade 0-5 Upper limbs Proximal- No difficulty in lifting the arms above the head. Distal- No weakness in distal muscles On formal testing 5/5 all over Lower limbs On formal testing 5/5 all over Coordination: [id number] normal. Target pursuit normal finger tapping normal, Rapid alternating moment of wrist normal Sensory system: Superficial sensations- Touch normal. Pain- Pinprick, Temperature all normal, Deep sensation normal, Joint position sense normal. Cortical sensation, Tactile discrimination, localization and extinction all normal. Deep tendon reflexes. Symmetrical bilateral, No evidence of Babinski. No sign of meningeal irritation Gait Examination: Deferred - Constitutional General appearance: comfortable Results - Laboratory Findings CBC and BMP: 03/21/19 00:46 03/21/19 00:46 Abnormal lab findings: Abnormal lab results WBC 13.9 K/mcL (4.3-11.1) H 03/21/19 00:46 MCH 27.1 pg (28.0-33.3) L 03/21/19 00:46 Neutrophils # 10.5 K/mcL (1.6-8.9) H 03/21/19 00:46 Chloride 111 mEq/L (98-107) H 03/21/19 00:46 Carbon Dioxide 22 mEq/L (23-29) L 03/21/19 00:46 Glucose 167 mg/dL (70-105) H 03/21/19 00:46 Calcium 7.4 mg/dL (8.6-10.3) L 03/21/19 00:46 Phosphorus 2.5 mg/dL (2.7-4.5) L 03/21/19 00:46 Magnesium 1.5 mg/dL (1.6-2.6) L 03/21/19 00:46 Serum Total Protein 5.0 g/dL (6.4-8.9) L 03/21/19 00:46 Albumin 3.3 g/dL (3.5-5.7) L 03/21/19 00:46 Globulin 1.7 g/dL (2.4-3.5) L 03/21/19 00:46 Ur Specific [place] > 1.030 (1.010-1.025) H 03/21/19 03:16 Consult Discharge Plan - Plan Referrals: NONE,PCP [Primary Care Provider] -
[2019-03-21] MEDS ORDERED: Insulin LISPRO 300 UNITS/3 ML VIAL SQ SCH (21:00)
[2019-03-22 05:11] LABS: Hematocrit 43.8 % (37.5-50.1); Hemoglobin 14.1 g/dL (12.9-16.9); Mean Corpuscular HGB Conc 32.2 g/dL (31.6-35.5); Mean Corpuscular Hemoglobin 26.8 pg (28.0-33.3); Mean Corpuscular Volume 83.3 fL (83.0-100.0); Mean Platelet Volume 11.2 fL (9.4-12.4); Platelet Count 171 K/mcL (140-400); Red Blood Count 5.26 M/mcL (4.19-5.50); Red Cell Distribution Width 14.5 % (11.5-14.5); White Blood Count 12.6 K/mcL (4.3-11.1)
[2019-03-22 05:29] LABS: BUN/Creatinine Ratio 15 (6-26); Blood Urea Nitrogen 15 mg/dL (8-23); Calcium 8.4 mg/dL (8.6-10.3); Carbon Dioxide 27 mEq/L (23-29); Chloride 107 mEq/L (98-107); Glucose 112 mg/dL (70-105); Magnesium 2.1 mg/dL (1.6-2.6); Osmolality,Calculated 296 (280-300); Potassium 3.9 mEq/L (3.5-5.1); Sodium 142 mEq/L (136-145); eGFR For African Americans > 60 (> 60); eGFR For Non-African Americans > 60 (> 60)
[2019-03-22] MEDS ORDERED: Lisinopril 20 MG TABLET PO SCH (09:00)
[2019-03-22] MEDS ORDERED: Loratadine 10 MG TABLET PO SCH (09:00)
[2019-03-22] MEDS ORDERED: Metoprolol XL (24 HR) Succ 25 MG TAB.ER.24H PO SCH (09:00)
[2019-03-22] MEDS: Aspirin Enteric Coated 81 MG Tablet PO SCH (09:29)
[2019-03-22] MEDS: Insulin LISPRO 300 UNITS/3 ML VIAL SQ SCH ×2 (09:31→14:23)
--- NOTE | 2019-03-22 10:44 | Neurology Progress Note ---
<Juan Villanueva M - Last Filed: 03/22/19 10:45> Date of Encounter: 03/22/19 Time of Encounter: 09:30 Assessment and Plan (1) Vertigo Status: Acute Vertigo improving per patient report. No focal neurologic deficits. MRI is pending. Continue hydration as his vertigo maybe related to his heat exposure/dehydration given that it appears to be reversing with appropriate rehydration measures. Further recommendations per Dr. Adam's addendum. Subjective Principal diagnosis: Vertigo Interval history: Mr. Corona is a 63 year old patient with past medical history of HTN, CAD, and HLD. He was admitted for dizziness and suspected heat exhaustion after working on his car outside yesterday with no water. He states he went home and laid down after spending all day working on his car. He woke up around 10pm and states he was overwhelmingly dizzy. He was seen today at bedside. He reports improvement in his dizziness but admits to still being symptomatic. He states that "it feels like the room is spinning when I get up." He admits to nausea when he becomes dizzy but denies vomiting. He denies chest pain, shortness of breath, or loss of consciousness. Objective - Constitutional Vitals: Temp Pulse Resp BP Pulse Ox 97.8 F 58 16 136/75 96 03/22/19 06:56 03/22/19 06:56 03/22/19 06:56 03/22/19 06:56 03/22/19 06:56 General appearance: Present: A&O X 2 (person and place but not time), pleasant, no acute distress Exam: GENERAL: Comfortable in no acute distress HEENT: Normal LUNGS: CTA HEART: RRR, S1 S2 Audible, no murmur EXTREMITIES: No Pedal edema. DETAILED NEUROLOGICAL EXAMINATION: MENTAL STATUS: Oriented to person, place, but not time Memory: unable to name current president or his predecessor Recent Memory Intact, Attention span is normal Cranial Nerve Examination: CN - II: Visual Acuity, Field of Vision Normal, Pupils- size shape reaction to light and accommodation: All normal. CN III, IV, : External ocular movements were intact, Pupils were reactive, Nodrooping of the eyelids Left lateral gaze evoked horizontal nystagmus. CN V: Sensation over the face to light touch and pinprick all normal CN VII: No facial asymmetry, no flattening of nasolabial folds, no difficulty in closing the eyes, no loss of forehead wrinkles, no difficulty in eye-closure, frowning raising eyebrows. CNVIII: No significant hearing loss CN IX, X: Uvula centralized not deviated, Gag reflex: Not tested CN X1: Sternocleidomastoid, trapezius, normal or evidence of any weakness. CN X11: No Dysarthria, no wasting or fibrilation of tongue muscles, no deviation Motor examination: No hypertrophy, tone was normal Upper limbs Proximal- No difficulty in lifting the arms above the head. Distal- No weakness in distal muscles On formal testing 5/5 all over Lower limbs On formal testing 5/5 all over Coordination: Oxvkwv-ui-paze normal. finger tapping normal, Rapid alternating moment of wrist normal Sensory system: Superficial sensations- Touch normal. Pain- Pinprick, Temperature all normal, Deep sensation normal, Joint position sense normal. Cortical sensation, Tactile discrimination, localization and extinction all normal. Deep tendon reflexes. Symmetrical bilateral No sign of meningeal irritation Gait Examination: Deferred Results - Laboratory Findings CBC and BMP: 03/22/19 04:46 03/22/19 04:46 Abnormal lab findings: Abnormal lab results WBC 12.6 K/mcL (4.3-11.1) H 03/22/19 04:46 MCH 26.8 pg (28.0-33.3) L 03/22/19 04:46 Neutrophils # 10.5 K/mcL (1.6-8.9) H 03/21/19 00:46 Chloride 111 mEq/L (98-107) H 03/21/19 00:46 Carbon Dioxide 22 mEq/L (23-29) L 03/21/19 00:46 Glucose 112 mg/dL (70-105) H 03/22/19 04:46 POC Glucose 128 mg/dL (70-99) H 03/21/19 15:02 Calcium 8.4 mg/dL (8.6-10.3) L 03/22/19 04:46 Phosphorus 2.5 mg/dL (2.7-4.5) L 03/21/19 00:46 Magnesium 1.5 mg/dL (1.6-2.6) L 03/21/19 00:46 Serum Total Protein 5.0 g/dL (6.4-8.9) L 03/21/19 00:46 Albumin 3.3 g/dL (3.5-5.7) L 03/21/19 00:46 Globulin 1.7 g/dL (2.4-3.5) L 03/21/19 00:46 Ur Specific [place] > 1.030 (1.010-1.025) H 03/21/19 03:16 Consult Discharge Plan - Plan Instructions: Meclizine (By mouth) Referrals: NONE,PCP [Primary Care Provider] - (Contact PCP and schedule follow up appointment within 7 days of discharge.) Prescriptions: Meclizine HCl [Verticalm] 25 mg PO TID PRN #30 tablet PRN Reason: Vertigo <Uriel Adam I - Last Filed: 03/23/19 16:21> Date of Encounter: 03/22/19 Assessment and Plan (1) Vertigo Status: Acute Pt was seen and examined, my medical decision was reviewed with the Resident Physician, I agree with the documented findings, disposition and treatment plan, as described except to the extent set forth below MRI of the brain is negative no evidence of any posterior circulation stroke from neurology standpoint patient is stable okay to be discharged Uriel Adam MD (2) Near syncope Status: Acute Objective - Constitutional Vitals: Temp Pulse Resp BP Pulse Ox 97.5 F L 63 16 141/65 95 03/22/19 11:16 03/22/19 11:16 03/22/19 11:16 03/22/19 11:16 03/22/19 11:16 Results - Laboratory Findings CBC and BMP: 03/22/19 04:46 03/22/19 04:46 Abnormal lab findings: Abnormal lab results WBC 12.6 K/mcL (4.3-11.1) H 03/22/19 04:46 MCH 26.8 pg (28.0-33.3) L 03/22/19 04:46 Neutrophils # 10.5 K/mcL (1.6-8.9) H 03/21/19 00:46 Chloride 111 mEq/L (98-107) H 03/21/19 00:46 Carbon Dioxide 22 mEq/L (23-29) L 03/21/19 00:46 Glucose 112 mg/dL (70-105) H 03/22/19 04:46 POC Glucose 137 mg/dL (70-99) H 03/22/19 11:22 Calcium 8.4 mg/dL (8.6-10.3) L 03/22/19 04:46 Phosphorus 2.5 mg/dL (2.7-4.5) L 03/21/19 00:46 Magnesium 1.5 mg/dL (1.6-2.6) L 03/21/19 00:46 Serum Total Protein 5.0 g/dL (6.4-8.9) L 03/21/19 00:46 Albumin 3.3 g/dL (3.5-5.7) L 03/21/19 00:46 Globulin 1.7 g/dL (2.4-3.5) L 03/21/19 00:46 Ur Specific [place] > 1.030 (1.010-1.025) H 03/21/19 03:16
[2019-03-22 11:24] VITALS: BP 141/65
--- NOTE | 2019-03-22 14:02 | Discharge Summary ---
- NOTES TO OUTPATIENT PROVIDER Notes to Outpatient Provider: f/u with PCP in one week. please use Meclizine as needed for your vertigo. If your vertigo still persists, please f/u with ENT in 1-2 weeks. Date of Encounter: 03/22/19 Time of Encounter: 13:57 - Discharge Diagnosis (1) Heat exhaustion Priority: Primary Status: Acute Qualifiers: Encounter type: initial encounter Qualified Code(s): T67.5XXA - Heat exhaustion, unspecified, initial encounter (2) Near syncope Priority: Primary Status: Acute (3) Vertigo Priority: Primary Status: Acute (4) HTN (hypertension) Priority: Secondary Status: Chronic Qualifiers: Hypertension type: essential hypertension Qualified Code(s): I10 - Essential (primary) hypertension (5) Non-insulin dependent type 2 diabetes mellitus Priority: Secondary Status: Chronic (6) Gastroenteritis Priority: Secondary Status: Acute Hospital course: Mr. Corona is a 63 year old male with hx of HTN and CAD presented to ED with concerns of heat exhaustion. He was evaluated in the ER and was to be discharged but remained persistently dizzy when standing so was admitted. Mr Corona stated that he was out in the heat working yesterday. He didn't drink much and didn't urinate much. Y/d morning he felt lightheaded and went to the kitchen and fell. He is unsure if he completely lost consciousness. His CT of Head did not show any acute abnormalities. 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 He was started on IV hydration. His Brain MRI did not show any acute infarction. He was evaluated by neurologist. Since he still have some vertigo symptoms, recommend to take Meclizine as needed. He c/o Rt ear pain , I did check his both ear, did not notice any signs of inf. - Time Spent with Patient Total time spent providing and/or coordinating discharge services: - Discharge Medications Prescriptions: New Meclizine HCl [Verticalm] 25 mg PO TID PRN #30 tablet PRN Reason: Vertigo Continued Aspirin Enteric Coated [Aspirin EC] 81 mg PO DAILY #30 tablet. metFORMIN [Glucophage] 500 mg PO BIDWM Cetirizine HCl 5 mg PO DAILY Omeprazole [PriLOSEC] 20 mg PO DAILY Metoprolol Succinate [Toprol Xl] 25 mg PO DAILY Lisinopril 30 mg PO DAILY Home Medications: Aspirin Enteric Coated [Aspirin EC] 81 mg PO DAILY #30 tablet. 04/17/15 [Rx] Cetirizine HCl 5 mg PO DAILY 03/21/19 [History] Lisinopril 30 mg PO DAILY 03/21/19 [History] Metoprolol Succinate [Toprol Xl] 25 mg PO DAILY 03/21/19 [History] Omeprazole [PriLOSEC] 20 mg PO DAILY 03/21/19 [History] metFORMIN [Glucophage] 500 mg PO BIDWM 03/21/19 [History] Meclizine HCl [Verticalm] 25 mg PO TID PRN #30 tablet 03/22/19 [Rx] Allergies/Adverse Reactions: Allergy/AdvReac Type Severity Reaction Status Date / Time No Known Allergies Allergy Verified 03/21/19 00:31 Date of admission: 03/21/19 04:38 Primary care physician: PCP NONE Consults: 03/21/19 08:02 Consult to Neurology [CONS] Routine Consulting Provider: [facility] Reason for Consult: Dizziness - positional. ? BPV versus other Call Completed: Yes - Constitutional Vitals: Temp Pulse Resp BP Pulse Ox 97.5 F L 63 16 141/65 95 03/22/19 11:16 03/22/19 11:16 03/22/19 11:16 03/22/19 11:16 03/22/19 11:16 General appearance: Present: A&O X 3, no acute distress, answers questions appropriately Exam: Gen: Alert, awake, Oriented to time,place and person Chest: Diminished breath sounds B/L, No wheezing, No crackles, No rales Heart: S1S2+ RRR No murmurs Abd: Soft, NT, BS +, No organomegaly Ext: No edema, pulses are palpable, No calf tenderness Neuro : Normal motor and sensory function. Vertigo + Skin: No rash. - Patient Status Disposition: Home, Self-Care Condition: Good Overall status at discharge: patient is back to baseline - Discharge Instructions Follow Up With: NONE,PCP [Primary Care Provider] - - Diet and Activity Activity: increase activity as tolerated Diet: low salt diet
--- NOTE | 2019-03-23 07:33 | Electrocardiograph Report ---
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
== END 2019-03-22 15:00 | disposition home or self-care (01) ==
LOC: 3BNU 00:28 → EMEROOARM 00:28 → SUATTDRO 04:38 → 3BNU 05:20
PROVIDERS: ADMIT Internal Medicine; ATTEND Internal Medicine

== ENCOUNTER 2021-05-30 13:42 | Observation (INO) ==
[2021-05-30] MEDS ORDERED: Isovue-370 500 ML BOTTLE IVP ONE (14:24)
[2021-05-30 14:36] LABS: Hemoglobin 13.9 g/dL (12.9-16.9); Mean Corpuscular HGB Conc 32.3 g/dL (31.6-35.5); Mean Corpuscular Hemoglobin 25.8 pg (28.0-33.3); Mean Corpuscular Volume 79.8 fL (83.0-100.0); Mean Platelet Volume 9.8 fL (9.4-12.4); Platelet Count 357 K/mcL (140-400); Red Blood Count 5.39 M/mcL (4.19-5.50); Red Cell Distribution Width 14.3 % (11.5-14.5)
[2021-05-30 14:57] LABS: INR 1.1; Prothrombin Time 12.4 Seconds (9.4-12.1)
[2021-05-30 14:59] LABS: Activated Partial Thrombo Time 33.9 Seconds (26.0-36.0)
[2021-05-30 15:14] LABS: BUN/Creatinine Ratio 18 (6-26); Blood Urea Nitrogen 15 mg/dL (8-23); Calcium 8.9 mg/dL (8.6-10.3); Carbon Dioxide 27 mEq/L (23-29); Chloride 103 mEq/L (98-107); Creatine Kinase 50 Units/L (30-223); Ethanol < 10 mg/dL (Less than 10); Glucose 159 mg/dL (70-105); Osmolality,Calculated 286 (280-300); Sodium 136 mEq/L (136-145); Troponin I < 0.03 ng/mL (< 0.04); eGFR For African Americans > 60 (> 60); eGFR For Non-African Americans > 60 (> 60)
[2021-05-30 15:54] LABS: Amphetamine Screen,Urine Negative ng/mL (Cutoff=1000); Barbiturate Screen,Urine Negative ng/mL (Cutoff=200); Benzodiazepines Screen,Urine Negative ng/mL (Cutoff=200); Cannabinoid Screen,Urine Negative ng/mL (Cutoff = 50); Cocaine Screen,Urine Negative ng/mL (Cutoff= 300); Opiate Screen,Urine Negative ng/mL (Cutoff=300); Phencyclidine Screen,Urine Negative ng/mL (Cutoff=25)
[2021-05-30 15:54] LABS: Bilirubin,Urine Negative (Negative); Blood,Urine Negative (Negative); Clarity,Urine Clear (Clear); Color,Urine Colorless (Yellow); Glucose,Urine (UA) 300 mg/dL (Normal); Ketones,Urine Negative (Negative); Leukocyte Esterase,Urine Negative (Negative); Mucus,Urine Few per lpf (None-Few); Nitrite,Urine Negative (Negative); PH,Urine 6.5 pH Units (5.0-8.0); Protein,Urine Negative (Neg-Trace); RBC,Urine 0-3 per hpf (0-3); Specific Gravity,Urine 1.007 (1.010-1.025); Sperm,Urine Present per hpf (None Seen); Urobilinogen,Urine Normal (Normal); WBC,Urine 0-3 per hpf (0-3)
[2021-05-30] MEDS ORDERED: Aspirin 81 MG TAB.CHEW PO ONE (17:15)
[2021-05-30] MEDS ORDERED: Ondansetron 4 MG/2 ML VIAL IVP PRN (17:40)
[2021-05-30] MEDS ORDERED: Melatonin 3 MG TABLET PO PRN (17:40)
[2021-05-30] MEDS ORDERED: Naloxone 0.4 MG/ML INJ IVP PRN (17:40)
[2021-05-30] MEDS ORDERED: Acetaminophen 325 MG TABLET PO PRN (17:40)
[2021-05-30] MEDS ORDERED: *HR* Dextrose 50 % in Water (Syg) 50 ML SYRINGE IVP PRN (17:42)
[2021-05-30] MEDS ORDERED: Dextrose Gel 15 GM/37.5 ML TUBE PO PRN ×2 (17:42)
[2021-05-30] MEDS ORDERED: D5% in Water 1,000 ML IVC PRN (17:42)
[2021-05-31 05:52] LABS: BUN/Creatinine Ratio 14 (6-26); Blood Urea Nitrogen 11 mg/dL (8-23); Calcium 8.4 mg/dL (8.6-10.3); Carbon Dioxide 23 mEq/L (23-29); Chloride 107 mEq/L (98-107); Chol/HDL Ratio 5.3 (0-4.9); Cholesterol 148 mg/dL (< 200); Glucose 119 mg/dL (70-105); HDL Cholesterol 28 mg/dL (40-59); LDL Cholesterol,Calculated 84 mg/dL (< 100); Osmolality,Calculated 287 (280-300); Phosphorous 2.9 mg/dL (2.7-4.5); Sodium 138 mEq/L (136-145); Triglycerides 181 mg/dL (< 150); Troponin I < 0.03 ng/mL (< 0.04); eGFR For African Americans > 60 (> 60); eGFR For Non-African Americans > 60 (> 60)
[2021-05-31] MEDS ORDERED: *HR* Enoxaparin 40 MG/0.4 ML SYRINGE SQ SCH (06:00)
[2021-05-31 06:04] LABS: Hematocrit 42.7 % (37.5-50.1); Hemoglobin 14.2 g/dL (12.9-16.9); Mean Corpuscular HGB Conc 33.3 g/dL (31.6-35.5); Mean Corpuscular Hemoglobin 26.5 pg (28.0-33.3); Mean Platelet Volume 9.7 fL (9.4-12.4); Platelet Count 320 K/mcL (140-400); Red Blood Count 5.35 M/mcL (4.19-5.50); Red Cell Distribution Width 14.6 % (11.5-14.5); White Blood Count 10.2 K/mcL (4.3-11.1)
[2021-05-31 06:06] LABS: Mean Corpuscular Volume 79.8 fL (83.0-100.0)
[2021-05-31 07:07] VITALS: PULSE 66
[2021-05-31 07:15] VITALS: TEMP 98.8; O2SAT 94
[2021-05-31 08:26] VITALS: BP 108/62
[2021-05-31] MEDS ORDERED: lisinopriL 20 MG TABLET PO SCH (09:00)
[2021-05-31] MEDS ORDERED: Aspirin Enteric Coated 81 MG Tablet PO SCH (09:00)
[2021-05-31] MEDS ORDERED: Metoprolol XL (24 HR) Succ 25 MG TAB.ER.24H PO SCH (09:00)
[2021-05-31] MEDS ORDERED: Insulin DETEMIR 100 UNIT/ML X5UNITS SUBQ SCH (09:00)
[2021-05-31] MEDS ORDERED: Loratadine 10 MG TABLET PO SCH (09:00)
[2021-05-31 09:05] LABS: Estimated Average Glucose 163 mg/dl; Hemoglobin A1C 7.3 %
== END 2021-05-31 09:45 | disposition home or self-care (01) ==
LOC: EMEROOARM 13:42 → 3BNU 13:42 → SUATTDRO 18:30 → 3BNU 20:11
PROVIDERS: ADMIT Internal Medicine; ATTEND Internal Medicine